=== PATIENT | female | born 1950 | race Caucasian/White ===

== ENCOUNTER 2023-05-24 04:43 | Day surgery (SDC) | payer OTHER, MEDICARE ==
[2023-05-21 15:47] VITALS: BMI 20.7
[2023-05-24 09:40] VITALS: TEMP 97.8
[2023-05-24 10:21] VITALS: RESP 18
[2023-05-24 10:22] VITALS: BP 112/60; PULSE 90
== END 2023-05-24 10:23 | disposition home or self-care (01) ==
LOC: JASU-ENDO 04:43
PROVIDERS: ATTEND Internal Medicine Gastroenterology
PROC: 0DJD8ZZ Inspection of Lower Intestinal Tract, Via Natural or Artificial Opening Endoscopic (ICD-10-PCS; principal; 2023-05-24 09:00)
DX: Z12.11 Encounter for screening for malignant neoplasm of colon (principal); K57.30 Diverticulosis of large intestine without perforation or abscess without bleeding; Z86.010 Personal history of colon polyps; Z80.0 Family history of malignant neoplasm of digestive organs; I10 Essential (primary) hypertension

== ENCOUNTER 2024-09-11 06:22 | Day surgery (SDC) | payer OTHER, MEDICARE ==
[2024-09-09 13:27] VITALS: BMI 21.5
[2024-09-11] MEDS ORDERED: BUPIVACAINE HCL/PF 0.5% (5MG/ML) 10 ML VIAL ONE (07:13)
[2024-09-11] MEDS ORDERED: MIDAZOLAM HCL 2 MG/2 ML SINGLE DOSE VIAL ONE (07:14)
[2024-09-11] MEDS ORDERED: PROPOFOL 20 ML ONE (07:14)
[2024-09-11] MEDS ORDERED: LIDOCAINE HCL/PF 2% SDV 5ML VIAL ONE (07:14)
[2024-09-11] MEDS ORDERED: BETAMET ACET/BETAMET NA PH 30 MG/5 ML VIAL ONE (07:15)
[2024-09-11] MEDS ORDERED: LIDOCAINE 1%/EPI 1:100000 (20 ML MULTI DOSE VIAL) ONE (07:15)
[2024-09-11] MEDS ORDERED: GENTAMICIN SO4 80 MG/2 ML VIAL ONE ×2 (07:15→08:36)
[2024-09-11] MEDS: ceFAZolin 2 GRAM PREMIX BAG IVPB ONE ×2 (07:58)
[2024-09-11] MEDS ORDERED: ceFAZolin SODIUM 1 GM VIAL ONE (07:59)
[2024-09-11] MEDS ORDERED: KETOROLAC TROMETHAMINE 30 MG/1 ML VIAL ONE (07:59)
[2024-09-11] MEDS ORDERED: DEXAMETHASONE SOD PHOSPHATE 4 MG/1 ML VIAL ONE (07:59)
[2024-09-11] MEDS ORDERED: ONDANSETRON 4 MG/2 ML VIAL ONE (07:59)
[2024-09-11] MEDS ORDERED: PROMETHAZINE HCL 25 MG/1 ML VIAL IVPB PRN (08:14)
[2024-09-11] MEDS ORDERED: ONDANSETRON 4 MG/2 ML VIAL IVPUSH PRN (08:14)
[2024-09-11] MEDS ORDERED: oxyCODONE HCL 5 MG TABLET PO PRN ×2 (08:14)
[2024-09-11] MEDS: LACTATED RINGERS SOLUTION 1,000 ML IV SCH (09:50)
[2024-09-11] MEDS ORDERED: ACETAMINOPHEN INJECTION 100 ML ONE (10:11)
[2024-09-11] MEDS: ACETAMINOPHEN 1000 MG/100 ML BAG IVPB ONE (10:13)
[2024-09-11 11:31] VITALS: RESP 16; TEMP 97.8
[2024-09-11 12:37] VITALS: BP 102/70; PULSE 92
== END 2024-09-11 13:42 | disposition home or self-care (01) ==
LOC: JASU-SURG 06:22
PROVIDERS: ATTEND Podiatrist
PROC: 0QSQ04Z Reposition Right Toe Phalanx with Internal Fixation Device, Open Approach (ICD-10-PCS; principal; 2024-09-11 08:00)
PROC: 0L8V0ZZ Division of Right Foot Tendon, Open Approach (ICD-10-PCS; 2024-09-11 08:00)
PROC: 0HXMXZZ Transfer Right Foot Skin, External Approach (ICD-10-PCS; 2024-09-11 08:00)
DX: M20.11 Hallux valgus (acquired), right foot (principal); M20.41 Other hammer toe(s) (acquired), right foot; M19.071 Primary osteoarthritis, right ankle and foot; S93.124A Dislocation of metatarsophalangeal joint of right lesser toe(s), initial encounter; L97.519 Non-pressure chronic ulcer of other part of right foot with unspecified severity; L90.5 Scar conditions and fibrosis of skin; M65.871 Other synovitis and tenosynovitis, right ankle and foot; M24.574 Contracture, right foot; X58.XXXA Exposure to other specified factors, initial encounter; Y93.9 Activity, unspecified; Y92.9 Unspecified place or not applicable
CPT/HCPCS: 88304-TC; 88305-TC; 88311-TC; 94760; 97116-GP